=== PATIENT | male | born 1975 ===

== ENCOUNTER 2018-09-04 16:30 | Emergency (ER) | payer OTHER, MEDICAID ==
[2018-09-04 16:43] VITALS: O2SAT 98
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
[2018-09-04 18:25] VITALS: BP 128/78; PULSE 70; RESP 16; TEMP 98.2
== END 2018-09-04 18:24 | disposition home or self-care (01) ==
LOC: C.ER 16:30
DX: Z04.1 Encounter for examination and observation following transport accident (principal)